=== PATIENT | male | born 1975 | race Caucasian/White ===

== ENCOUNTER 2021-11-23 07:52 | Emergency (ER) | payer OTHER ==
[~2021-11-23] VITALS: Ht 190.5 cm; Wt 121.0 kg
[2021-11-23 08:00] VITALS: BP 136/84
[2021-11-23] MEDS ORDERED: LIDOCAINE 2%/EPI 1:100,000 20 ML VIAL. IJ ONE (08:15)
[2021-11-23] MEDS ORDERED: NEOMY/BACITR/POLYMYXIN OINT PACKET. TP ONE (08:15)
--- NOTE | 2021-11-23 08:42 | PHYS DOC ---
Past History Past Medical History: No Pertinent History Additional Past Medical Histor: Lymphedema, enviornmental allergies. Past Surgical History: Appendectomy, Other Additional Past Surgical Histo: vasectomy, vericocele, achillies tendon repair General Adult EDM: Chief Complaint: LACERATION/AVULSION HPI: HPI: Patient is a 46yo male that presented to the ED for a laceration on the palmar aspect of the left index finger after cutting it with a razor early this morning. The bleeding subsided with pressure. However, it would open up with hand movement. Patient is in the and in town briefly for a conference, so he is unable to follow up for suture removal. Last tetanus shot was August 2020. All other immunizations were up to date per patient. Takes naproxen daily. Denies any other concerns or complaints at this time. Review of Systems: Review of Systems: Constitutional: Denies fever or chills HENT: Denies nasal congestion or sore throat Respiratory: Denies cough or shortness of breath Cardiovascular: Denies chest pain or edema GI: Denies abdominal pain, nausea, vomiting. Musculoskeletal: Denies back pain or joint pain Integument: Denies rash, reports laceration of left hand Neurologic: Denies headache, focal weakness or sensory changes Psychiatric: Denies depression or anxiety Current Medications: Current Meds: Current Medications Medications (Trade) Dose Ordered Sig/Walter Start Time Stop Time Status Last Admin Dose Admin Lidocaine/ Epinephrine (Xylocaine 2%-Epi 1:100,000) 20 ml 1X ONCE 11/23/21 08:15 11/23/21 08:16 UNV 11/23/21 08:16 20 ML Neomycin/ Polymyxin/ Bacitracin (Triple Antibiotic Ointment) 1 pkt 1X ONCE 11/23/21 08:15 11/23/21 08:16 UNV 11/23/21 08:16 1 PKT Allergies: Allergies: Allergies Coded Allergies Type Severity Reaction Last Updated Verified No Known Drug Allergies 11/23/21 No Physical Exam: PE: Constitutional: Well developed, well nourished, no acute distress, non-toxic appearance. [] HENT: Normocephalic, atraumatic[] Eyes: conjunctiva normal, no discharge. [] Neck: Normal range of motion Skin: Warm, dry, no erythema, no rash. [] Back: No tenderness, no CVA tenderness. [] Extremities: 5 cm linear laceration of palmar aspect of left index finger. Neurologic: Alert and oriented X 3, normal motor function, normal sensory function, no focal deficits noted. [] Psychologic: Affect normal, judgement normal, mood normal. [] Current Patient Data: Vital Signs: Vital Signs Date Time Temp Pulse Resp B/P (MAP) Pulse Ox O2 Delivery O2 Flow Rate FiO2 11/23/21 08:00 98.3 79 14 136/84 (101) 96 EKG: EKG: [] Radiology/Procedures: Radiology/Procedures: [] Heart Score: C/O Chest Pain: N/A Risk Factors: Risk Factors: DM, Current or recent (<one month) smoker, HTN, HLP, family history of CAD, obesity. Risk Scores: Score 0 - 3: 2.5% MACE over next 6 weeks - Discharge Home Score 4 - 6: 20.3% MACE over next 6 weeks - Admit for Clinical Observation Score 7 - 10: 72.7% MACE over next 6 weeks - Early Invasive Strategies Course & Med Decision Making: Course & Med Decision Making Pleasant 46 yo male presented to ED for left index finger laceration after cutting it with a razor. Laceration was linear, clean, and approximately 5 cm in length. It was closed with 3 simple interrupted sutures. Patient is from out of town and was instructed to have sutures removed in 10-14 days. Rhodaon Disclaimer: Je Disclaimer: This electronic medical record was generated, in whole or in part, using a voice recognition dictation system. Laceration/Wound Repair Laceration/Wound Repair : Wound Location: upper extremity (palmar left index finger) Wound's Depth, Shape: linear Wound Length (cm): 2 Wound Explored: no foreign body removed Irrigated w/ Saline (ccs): 200 Anesthesia: Lidocaine w/ Epi (2%) Volume Anesthetic (ccs): 4 Wound Debrided: minimal Wound Repaired With: sutures Suture Size/Type: 5:0, nylon Number of Sutures: 3 (simple interupted ) Sterile Dressing Applied?: Yes Progress Verbal consent obtained. Time out performed. Hand hygiene utilized. Wound cleaned with ChloraPrep. Anesthesia obtained via 4 nerve digital block via dorsal approach with a 25-gauge hypodermic needle with (2) mL's of lidocaine 2% with epinephrine and 2 ml lidocaine 2% with epinephrine injected locally. Copious irrigation performed. Wound well approximated with 5.0 nylon simple interrupted sutures x3 Patient tolerated procedure well and without difficulty. Empiric antibiotic ointment applied prior to sterile dressing. Departure Departure: Impression: Primary Impression: Finger laceration Qualified Codes: S61.211A - Laceration without foreign body of left index finger without damage to nail, initial encounter Disposition: HOME / SELF CARE / HOMELESS Condition: STABLE Referrals: PCP,NO (PCP) Patient Instructions: Laceration Care, Adult, [id number] Additional Instructions: Do not soak your wound. You may shower. Clean wound daily with soap and water. Change dressing 2 times daily. Use over the counter antibiotic ointment with each dressing change. Sutures need to be removed in 10 days. Present to your family doctor or local urgent care for removal. You may also present to the ED but it will be an additional visit/charge. After suture removal you may use Vitamin E ointment to soften the wound and prevent scarring. GIL FRANCISCO DO Nov 23, 2021 08:41
== END 2021-11-23 09:10 | disposition home or self-care (01) ==
LOC: ER 07:52
DX: S61.211A Laceration without foreign body of left index finger without damage to nail, initial encounter (principal); W27.8XXA Contact with other nonpowered hand tool, initial encounter; Y93.89 Activity, other specified; Y92.89 Other specified places as the place of occurrence of the external cause; Y99.8 Other external cause status
CPT/HCPCS: 12001; 99282